=== PATIENT | female | born 1965 | race Hispanic/Latino ===

== ENCOUNTER 2019-03-27 16:43 | Emergency (ER) | payer OTHER, SELFPAY ==
[2019-03-27] MEDS ORDERED: Dexamethasone 10 MG/ML VIAL ONE (18:51)
--- NOTE | 2019-03-27 19:21 | RAD ---
RIGHT KNEE 4 VIEWS: Date: 03/27/19 HISTORY: Knee pain. FINDINGS: There are mild degenerative changes. No evidence of fracture. No acute osseous abnormality. No signif icant joint effusion. IMPRESSION: Mild degenerative change. POS: [id number]
== END 2019-03-27 19:00 | disposition home or self-care (01) ==
LOC: ERS 16:43
DX: M25.561 Pain in right knee (principal); I10 Essential (primary) hypertension
CPT/HCPCS: J1100

== ENCOUNTER 2024-03-08 14:07 | Emergency (ER) | payer BC | END 2024-03-08 14:51 | disposition home or self-care (01) | LOC: ERS 14:07 | DX: S92.515A Nondisplaced fracture of proximal phalanx of left lesser toe(s), initial encounter for closed fracture (principal); I10 Essential (primary) hypertension; E11.9 Type 2 diabetes mellitus without complications; Z79.84 Long term (current) use of oral hypoglycemic drugs; X58.XXXA Exposure to other specified factors, initial encounter ==

== ENCOUNTER 2025-07-09 18:23 | Emergency (ER) | payer BC, OTHER ==
[2025-07-09] MEDS ORDERED: Orphenadrine Citrate 100 MG ER.TAB ONE (19:22)
[2025-07-09] MEDS ORDERED: HYDROcodone/Acetaminophen 5/325 mg Tablet ONE (19:23)
== END 2025-07-09 21:10 | disposition home or self-care (01) ==
LOC: ERS 18:23
DX: S83.92XA Sprain of unspecified site of left knee, initial encounter (principal); S80.02XA Contusion of left knee, initial encounter; I10 Essential (primary) hypertension; E11.9 Type 2 diabetes mellitus without complications; Z79.899 Other long term (current) drug therapy; Z79.84 Long term (current) use of oral hypoglycemic drugs; W18.30XA Fall on same level, unspecified, initial encounter
CPT/HCPCS: 99283